=== PATIENT | male | born 1980 ===

== ENCOUNTER 2018-02-25 10:47 | Emergency (ER) | payer SELFPAY ==
[2018-02-25 10:53] VITALS: O2SAT 96
--- NOTE | 2018-02-25 11:20 | C.PDOC ---
History Of Present Illness 37 year old male presents to the emergency department with complaints of flu- like symptoms. Patient reports experiencing fever, myalgia, and general malaise since yesterday. Patient states that he took Nyquil and Tylenol and 3AM this morning. Patient denies any other symptoms. HPI: Influenza Time Seen by Provider: 02/25/18 10:56 Chief Complaint: Flu-like Symptoms History Per: Patient Exam Limitations: no limitations Onset/Duration Of Symptoms: Days (1) Symptoms include: fever, other (myalgia, malaise) Past Medical History Reviewed: Historical Data, Nursing Documentation, Vital Signs Vital Signs: Last Vital Signs Temp 102.9 F H 02/25/18 10:49 Pulse 110 H 02/25/18 10:49 Resp 20 02/25/18 10:49 BP 132/79 02/25/18 10:49 Pulse Ox 96 02/25/18 10:49 - Medical History PMH: No Chronic Diseases Surgical History: No Surg Hx Family History: States: No Known Family Hx - Social History Hx Alcohol Use: No Hx Substance Use: No - Immunization History Hx Tetanus Toxoid Vaccination: No Hx Influenza Vaccination: No Hx Pneumococcal Vaccination: No Review Of Systems Except As Marked, All Systems Reviewed And Found Negative. Constitutional: Positive for: Fever, Malaise Musculoskeletal: Positive for: Other (myalgia) Physical Exam - Physical Exam Appears: Other (patient in mild distress) Skin: Normal Color Head: Atraumatic, Normacephalic Eye(s): bilateral: Normal Inspection Ear(s): Bilateral: Normal Nose: Normal, Other (clear) Throat: Normal Neck: Normal, Supple Chest: Symmetrical Cardiovascular: Rhythm Regular Respiratory: Normal Breath Sounds, Other (clear) Neurological/Psych: Oriented x3, Normal Speech, Normal Cognition - ECG O2 Sat by Pulse Oximetry: 96 - Progress ED Course And Treament: Patient administered Tamiflu 75mg PO, Toradol 60mg IM, and Tylenol 975mg PO. Patient is clear for discharge home. Disposition Counseled Patient/Family Regarding: Diagnosis, Need For Followup, Rx Given - Disposition Referrals: [facility] Director Service [Outside] [facility] [Outside] Disposition: HOME/ ROUTINE Disposition Time: 11:17 Condition: IMPROVED Prescriptions: Oseltamivir [Tamiflu] 75 mg PO BID #9 cap Instructions: Flu, Adult (DC) Forms: [employer] (South Korean) Print Language: ITALIAN - Clinical Impression Clinical Impression: Influenza - Scribe Statement The provider has reviewed the documentation as recorded by the Scribe (Scott Ashley) Provider Attestation: All medical record entries made by the Scribe were at my direction and personally dictated by me. I have reviewed the chart and agree that the record accurately reflects my personal performance of the history, physical exam, medical decision making, and the department course for this patient. I have also personally directed, reviewed, and agree with the discharge instructions and disposition.
[2018-02-25] MEDS ORDERED: Absorbable Gelatin Sponge Size 12-7 ONE (11:44)
[2018-02-25 11:55] VITALS: BP 102/63; PULSE 98; RESP 18
[2018-02-25 12:23] VITALS: TEMP 101.6
== END 2018-02-25 12:28 | disposition home or self-care (01) ==
LOC: C.ER 10:47
DX: J11.1 Influenza due to unidentified influenza virus with other respiratory manifestations (principal)
CPT/HCPCS: 96372; 99283; J1885